=== PATIENT | male | born 1945 | race Caucasian/White ===

== ENCOUNTER 2017-06-16 06:11 | Emergency (ER) | payer OTHER ==
[~2017-06-16] VITALS: Ht 172.7 cm; Wt 94.5 kg
[~2017-06-16 06:11] MED LIST: ACCUPRIL20 MG; CELEBREX400 MG PO; LIPITOR10 MG OR; MOTRIN800 MG PO; NAPROSYN500 MG OR; PREDNISONE10 MG PO; SOLU-MEDROL125 MG IM; VICODIN1 TAB PO
[2017-06-16 07:19] LABS: HEMOGLOBIN 15.2 g/dl (14.0-18.0); IMMATURE GRANULOCYTES 0.4 % (0.0-1.0); MEAN CELL VOLUME 96.2 fL CALC (80.0-100.0); MEAN CORPUSCULAR HGB 32.5 pG CALC (26.0-32.0); MEAN CORPUSCULAR HGB CONC 33.8 g/L CALC (32.0-36.0); NEUT# 5.42 thou/uL (1.82-7.42); RED BLOOD COUNT 4.68 mill/uL (4.70-6.10); RED CELL DISTRI WIDTH 12.4 % (11.5-15.5)
[2017-06-16 07:32] LABS: ALBUMIN 4.1 g/dL (3.2-5.0); ALKALINE PHOSPHATASE 77 u/l (38-126); ANION GAP 18 (6-22 (CALC)); BILIRUBIN, TOTAL 0.5 mg/dL (0.0-1.4); BUN 20 mg/dL (8-23); BUN/CREATININE RATIO 22 (12-20 (CALC)); CALCIUM 9.5 mg/dL (8.4-10.2); CARBON DIOXIDE 26 mmol/l (22-30); CHLORIDE 108 mmol/l (95-108); CREATININE 0.9 mg/dL (0.7-1.3); GFR > 60 ML/MIN (>=60 (CALC)); GFR FOR AFR.AMER. > 60 ML/MIN (>=60 (CALC)); GLUCOSE 147 mg/dL (82-115); POTASSIUM 4.3 mmol/l (3.5-5.1); SGOT/AST 28 u/l (19-48); SGPT/ALT 56 u/l (11-66); SODIUM 147 mmol/l (137-146); TOTAL PROTEIN 7.3 g/dL (6.3-8.2)
[2017-06-16 07:40] LABS: MYOGLOBIN 48 ng/mL (0 - 121)
[2017-06-16 07:44] LABS: D-DIMER 2.52 mg/L (0.19-0.60); PROTHROMBIN TIME 10.7 SECONDS (9.0-12.5)
[2017-06-16 08:00] VITALS: BP 140/69
== END 2017-06-16 10:10 | DRG 176 ==
LOC: ED 06:11
PROVIDERS: Emergency Medicine
DX: I26.99 Other pulmonary embolism without acute cor pulmonale (principal); I10 Essential (primary) hypertension

== ENCOUNTER 2018-06-19 07:14 | Emergency (ER) | payer OTHER ==
[~2018-06-19] VITALS: Ht 172.7 cm; Wt 95.4 kg
[2018-06-19] MEDS ORDERED: ELIQUIS2.5 MG PO (07:40)
[2018-06-19 07:55] LABS: HEMATOCRIT 43.7 % (39.0-50.0); HEMOGLOBIN 15.3 g/dl (14.0-18.0); IMMATURE GRANULOCYTES 0.2 % (0.0-5.0); MEAN CORPUSCULAR HGB 33.6 pG CALC (26.0-32.0); NEUT# 3.67 thou/uL (1.82-7.42); RED BLOOD COUNT 4.55 mill/uL (4.70-6.10); RED CELL DISTRI WIDTH 12.6 % (11.5-15.5)
[2018-06-19 08:21] LABS: ANION GAP 13 (6-22 (CALC)); BUN 18 mg/dL (8-23); BUN/CREATININE RATIO 19 (12-20 (CALC)); CARBON DIOXIDE 24 mmol/l (22-30); CHLORIDE 109 mmol/l (95-108); CREATININE 0.9 mg/dL (0.7-1.3); GFR > 60 ML/MIN (>=60 (CALC)); GFR FOR AFR.AMER. > 60 ML/MIN (>=60 (CALC)); POTASSIUM 3.9 mmol/l (3.5-5.1); SODIUM 142 mmol/l (137-146)
[2018-06-19 08:22] LABS: D-DIMER 0.35 mg/L (0.19-0.60); PROTHROMBIN TIME 10.6 SECONDS (9.0-12.5)
[2018-06-19] MEDS ORDERED: CELEBREX100 M1 PO (09:20)
[2018-06-19 09:25] VITALS: BP 167/77
== END 2018-06-19 09:31 | disposition home or self-care (01) | DRG 558 ==
LOC: ED 07:14
PROVIDERS: Family Medicine
DX: M76.62 Achilles tendinitis, left leg (principal); I10 Essential (primary) hypertension; E78.00 Pure hypercholesterolemia, unspecified; Z86.711 Personal history of pulmonary embolism; Z79.01 Long term (current) use of anticoagulants

== ENCOUNTER 2019-06-23 09:07 | Emergency (ER) | payer OTHER ==
[~2019-06-23] VITALS: Ht 172.7 cm; Wt 105.0 kg
[~2019-06-23 09:07] MED LIST changes: +CELEBREX100 M1 PO; +ELIQUIS2.5 MG PO
[2019-06-23 09:10] VITALS: BP 181/93
[2019-06-23] MEDS ORDERED: ZOLPIDEM5 MG PO (09:39)
[2019-06-23] MEDS ORDERED: CYCLOBENZAPR5 MG PO (09:44)
== END 2019-06-23 10:15 | disposition home or self-care (01) | DRG 563 ==
LOC: ED 09:07
DX: S29.012A Strain of muscle and tendon of back wall of thorax, initial encounter (principal); I10 Essential (primary) hypertension; V50.5XXA Driver of pick-up truck or van injured in collision with pedestrian or animal in traffic accident, initial encounter; Z86.711 Personal history of pulmonary embolism

== ENCOUNTER 2019-07-10 | Emergency (ER) | payer OTHER ==
[~2019-07-10] MED LIST changes: +CYCLOBENZAPR5 MG PO; +ZOLPIDEM5 MG PO
== END 2019-07-10 11:37 | disposition left against medical advice (07) | DRG 556 ==
DX: M25.512 Pain in left shoulder (principal); I10 Essential (primary) hypertension; Z86.711 Personal history of pulmonary embolism; Z11.9 Encounter for screening for infectious and parasitic diseases, unspecified

== ENCOUNTER 2019-09-01 09:55 | Emergency (ER) | payer OTHER ==
[2019-09-01 11:39] VITALS: BP 171/91
== END 2019-09-01 11:39 | disposition home or self-care (01) | DRG 563 ==
LOC: ED 09:55
DX: S46.912A Strain of unspecified muscle, fascia and tendon at shoulder and upper arm level, left arm, initial encounter (principal); S46.911A Strain of unspecified muscle, fascia and tendon at shoulder and upper arm level, right arm, initial encounter; I10 Essential (primary) hypertension; V89.2XXA Person injured in unspecified motor-vehicle accident, traffic, initial encounter